=== PATIENT | male | born 1985 | race Caucasian/White ===

== ENCOUNTER 2022-01-03 08:19 | Emergency (ER) | payer OTHER ==
[~2022-01-03] VITALS: Ht 172.7 cm; Wt 71.7 kg
[2022-01-03 08:22] VITALS: BP 133/81
[2022-01-03] MEDS ORDERED: IBUPROFEN 600 MG TAB PO ONE (09:15)
--- NOTE | 2022-01-03 09:35 | NUR ---
L HAND/ PALM IRRIGATED WITH NORMAL SALINE AND BETADINE MIXTURE. + CSM
[2022-01-03] MEDS ORDERED: IBUP-2213 PO (10:00)
[2022-01-03] MEDS ORDERED: ACET-8386 PO (10:00)
--- NOTE | 2022-01-03 10:03 | NUR ---
LONG FINGER SPLINT APPLIED TO PTS LEFT MIDDLE FINGER AND SECURED WITH TAPE.
[2022-01-03 10:29] VITALS: BP 133/81
--- NOTE | 2022-01-03 10:29 | NUR ---
Patient discharged with v/s stable. Written and verbal after care instructions ABOUT FINGER FRACTURE given and explained. Patient alert, oriented and verbalized understanding of instructions. Ambulatory with steady gait. All questions addressed prior to discharge. ID band removed. Patient advised to follow up with PMD. Rx of NORCO 5-325, IBUPROFEN given. Patient educated on indication of medication including possible reaction and side effects. Opportunity to ask questions provided and answered. PATIENT EDUCATED ON USE OF NARCOTICS, ADVISED TO NOT DRINK OR DRIVE WHILE USING, VERBALIZED UNDERSTANDING.
== END 2022-01-03 10:29 | disposition home or self-care (01) ==
LOC: MED 08:19 → EDBD 08:19 → MED 10:29
DX: S61.217A Laceration without foreign body of left little finger without damage to nail, initial encounter (principal); S61.213A Laceration without foreign body of left middle finger without damage to nail, initial encounter; S61.215A Laceration without foreign body of left ring finger without damage to nail, initial encounter; X58.XXXA Exposure to other specified factors, initial encounter; Y93.89 Activity, other specified; Y92.89 Other specified places as the place of occurrence of the external cause; Y99.8 Other external cause status
CPT/HCPCS: 12001; 73130; 90471; 90715; 99283

== ENCOUNTER 2022-07-01 16:00 | Emergency (ER) | payer OTHER ==
[~2022-07-01] VITALS: Ht 170.2 cm; Wt 72.6 kg
[~2022-07-01 16:00] MED LIST: ACET-8905 PO; IBUP-2213 PO
[2022-07-01 16:03] VITALS: BP 130/88
--- NOTE | 2022-07-01 16:09 | NUR ---
WOUND TO L ANTERIOR INDEX FINGER IRRIGATED WITH BETADINE x NS
[2022-07-01] MEDS ORDERED: LIDOCAINE 1% 500 MG/ 50 ML VIAL INJ ONE (16:50)
[2022-07-01] MEDS ORDERED: LIDOCAINE MPF 1% 5 ML ONE (17:01)
[2022-07-01] MEDS ORDERED: BACITRACIN OINT 500 UNITS/GM PKT TP ONE ×2 (17:32→17:35)
--- NOTE | 2022-07-01 17:38 | NUR ---
NON ADHERENT APPLIED TO L INDEX FINGER.
[2022-07-01 17:55] VITALS: BP 130/88
--- NOTE | 2022-07-01 17:55 | NUR ---
Patient discharged with v/s stable. Written and verbal after care instructions given and explained. Patient verbalized understanding. Ambulatory with steady gait. All questions addressed prior to discharge. Advised to follow up with PMD.
== END 2022-07-01 17:55 | disposition home or self-care (01) ==
LOC: MED 16:00
DX: S61.211A Laceration without foreign body of left index finger without damage to nail, initial encounter (principal); Z79.899 Other long term (current) drug therapy; X58.XXXA Exposure to other specified factors, initial encounter; Y93.89 Activity, other specified; Y92.89 Other specified places as the place of occurrence of the external cause; Y99.8 Other external cause status
CPT/HCPCS: 12002; 99282; J2001